=== PATIENT | female | born 1955 | race Caucasian/White ===

== ENCOUNTER 2020-08-18 14:04 | Emergency (ER) | payer BC, SELFPAY ==
--- NOTE | ~2020-08-18 | XR_ITS ---
XR wrist LT min 3V DATE: 08/18/2020 15:00 INDICATION: Patient fell onto concrete today. Bilateral wrist and hand pain TECHNIQUE: 4 views COMPARISON: None FINDINGS: Osteopenia. Mild osteoarthritis of the first carpometacarpal joint. No fracture or dislocation, periosteal reaction or bone destruction. IMPRESSION: No fracture or dislocation Reviewed, dictated and finalized at location A. IMPRESSION: No fracture or dislocation
--- NOTE | ~2020-08-18 | XR_ITS ---
XR hand RT min 3V DATE: 08/18/2020 14:59 INDICATION: Patient fell onto concrete today. Bilateral wrist and hand pain. Abrasion of right palm. TECHNIQUE: 3 views of right hand COMPARISON: None FINDINGS: Osteopenia. Osteoarthritic change is noted primarily at the interphalangeal joints. Old distal radial fracture deformity is suggested. Probable old healed proximal fifth metacarpal frac ture deformity. No recent fracture or dislocation. No radiopaque foreign body or subcutaneous emphysema is evident. IMPRESSION: No recent fracture or dislocation Reviewed, dictated and finalized at location A.
--- NOTE | ~2020-08-18 | XR_ITS ---
XR elbow RT min 3V DATE: 08/18/2020 15:13 INDICATION: Fall on concrete today. Right elbow pain TECHNIQUE: 4 views COMPARISON: None FINDINGS: There is a 1.5 mm depressed intra-articular lateral radial head fracture, with associated h emarthrosis. No other fracture or dislocation is evident. IMPRESSION: Depressed intra-articular radial head fracture with hemarthrosis Reviewed, dictated and finalized at location A.
--- NOTE | ~2020-08-18 | XR_ITS ---
XR hand LT min 3V DATE: 08/18/2020 14:59 INDICATION: Patient fell onto concrete today. Bilateral wrist and hand pain TECHNIQUE: 3 views COMPARISON: None FINDINGS: Osteopenia. Mild osteoarthritic changes at the first carpometacarpal and interphalangeal paola ints. No fracture or dislocation, periosteal reaction or bone destruction. IMPRESSION: No fracture or dislocation Reviewed, dictated and finalized at location A. IMPRESSION: No fracture or dislocation
--- NOTE | ~2020-08-18 | XR_ITS ---
XR wrist RT min 3V DATE: 08/18/2020 15:00 INDICATION: Patient fell onto concrete today. Bilateral wrist and hand pain TECHNIQUE: 4 views COMPARISON: None FINDINGS: Diffuse osteopenia. Old distal radial fracture deformity. No recent fracture or dislocation. IMPRESSION: No recent fracture or dislocation Reviewed, dictated and finalized at location A.
--- NOTE | 2020-08-18 14:14 | ED.GENADULT ---
HPI - General Adult General Chief complaint: Fall Stated complaint: Right Arm Pain Time Seen by Provider: 08/18/20 14:15 Source: patient Mode of arrival: ambulatory Limitations: no limitations History of Present Illness HPI narrative: 64-year-old female patient presents to the [facility] with complaints of bilateral hand and wrist pain. Patient states that she fell about 2 hours ago. Patient she states that she tripped over an uneven sidewalk and fell forward using both of her hands and wrist to break her fall. Patient states that she also landed on her knees but denies hitting her head or loss of consciousness. Patient complaining of worsening pain to the right hand. Patient states she has some abrasions to bilateral kneecaps but does not necessarily hurt when walking. Related Data Home Medications Medication Instructions Recorded Confirmed lisinopril 20 mg PO DAILY 08/18/20 08/18/20 omeprazole 20 mg PO DAILY 08/18/20 08/18/20 Allergies Allergy/AdvReac Type Severity Reaction Status Date / Time No Known Allergies Allergy Verified 08/18/20 14:20 Review of Systems Review of Systems: Narrative: CONSTITUTIONAL: Denies fever, chills, or sweats. EYES: Denies visual changes, redness, or discharge. ENT: Denies rhinorrhea, congestion, sore throat, or otalgia. CARDIOVASCULAR: Denies chest pain, palpitations, or edema. RESPIRATORY: Denies cough or dyspnea. GASTROINTESTINAL: Denies abdominal pain, nausea, vomiting, or diarrhea. GENITOURINARY: Denies dysuria or hematuria. SKIN: Denies rash or itching. Positive abrasions noted to bilateral hands on palm side. MUSCULOSKELETAL: Denies back pain, joint pain, or myalgia. Bilateral hand and wrist pain NEUROLOGIC: Denies headache, numbness, or weakness. PSYCHIATRIC: Denies anxiety or depression. [facility] Past Medical History Medical History (Updated 08/18/20 @ 15:36 by RUBY Siddiqi) GERD (gastroesophageal reflux disease) Hypertension Comments At the time of my signature I agree with nursing past medical history, surgical, social, and family history. There is no relevant family history pertinent to the presenting complaint. Exam Narrative: Exam Narrative: GENERAL: Well-appearing, well-nourished, and in no acute distress. HEAD: Normocephalic, atraumatic. EYES: PERRLA and EOMI. ENT: Nares clear, no rhinorrhea or epistaxis. Mucous membranes moist. NECK: Supple. No lymphadenopathy CHEST: Clear to auscultation. No respiratory distress. HEART: Regular rate and rhythm. No murmur heard. Normal peripheral pulses. ABDOMEN: Soft, nontender, nondistended, normal active bowel sounds. EXTREMITIES: The R family L hand is without obvious asymmetry or deformity when compared to the R and L hand. No swelling, erythema, atrophy, or obvious deformity. Patient has some abrasions noted to the palm side of bilateral hands with what appears to be some grass debris to the right palm side. No partial or complete amputation, subungual hematoma, bony deformity. Normal cascade of fingers. Normal flexion and extension of fingers. FDS and FDP intact aganist restistance. No focal fullness, thobbing pain, swelling of fingertip. Pulses and cap refill. The R elbow is without obvious asymmetry or deformity when compared to the L elbow. No obvious surface trauma, ecchymosis or soft tissue swelling. No bony tenderness to palpation of the lateral or medial epicondyle, olecranon, or radial head. No epicondylar or axillary lymphadenopathy. Pain with flexion, no pain with extension, supination, pronation. Normal muscle strength. Intact motor and sensation of ulnar, median, and radial nerves. SKIN: Warm, dry, no rash. NEURO: No focal deficits. Alert and oriented x3. Course Reevaluation(s) Reevaluation #1: Reevaluated patient notified her that she does have a fracture to the right elbow. Discussed with patient that we are going to go ahead and put her in a sling as well as clean the wounds on her hands. Discussed with
[2020-08-18 14:25] VITALS: BP 140/79; PULSE 75; RESP 20; TEMP 36.9; O2SAT 100
== END 2020-08-18 15:54 | disposition home or self-care (01) ==
PROVIDERS: Emergency Provider Nurse Practitioner Family
DX: M79.641 Pain in right hand (principal); S52.124A Nondisplaced fracture of head of right radius, initial encounter for closed fracture; W18.09XA Striking against other object with subsequent fall, initial encounter; K21.9 Gastro-esophageal reflux disease without esophagitis; I10 Essential (primary) hypertension
CPT/HCPCS: 73080; 73110; 73130; 99204; A4565; G0463